=== PATIENT | female | born 1965 | race Caucasian/White ===

== ENCOUNTER 2017-05-04 10:06 | Emergency (ER) | payer BC ==
[2017-05-04 10:19] VITALS: BP 157/91
--- NOTE | 2017-05-04 10:33 | EDM.PDOC ---
ED HPI GENERAL MEDICAL PROBLEM - General Chief Complaint: Abdominal Pain Stated Complaint: ABDOMINAL PAIN X 5 DAYS Time Seen by Provider: 05/04/17 10:33 - History of Present Illness INITIAL COMMENTS - FREE TEXT/NARRATIVE: 51-year-old female presents emergency room with abdominal pain. This started about 6 days ago it is intermittent crampy in nature and seems to be triggered by food. She cannot correlate of fatty foods are worse than any other foods but any food seems to make it worse. She is tolerating some broth and liquids at this point but that's about it. She had some loose stools during this time but she has not had a BM in 2 days. She is not having any associated nausea or vomiting with this. She denies any possibility of . She's been diagnosed with a spastic colon in the past. This morning the patient tried eating some pineapple of this made things much worse however at the time of this visit she is relatively pain-free. She describes the pain as being in the upper abdomen from the right side all the way over to the left side she cannot differentiate if it's worse in the right middle or left. Patient has had some loose stools she has not noticed any blood with ease they have been somewhat mucousy. Patient is on some sort of low-carb diet at this point however is not tolerating formed foods. Abdominal Pain Score (Numeric/FACES): 2 - Related Data Allergies Allergy/AdvReac Type Severity Reaction Status Date / Time No Known Allergies Allergy Verified 05/04/17 10:18 Home Meds: Home Meds Hyoscyamine Sulfate [Levsin-Sl] 0.125 mg SL Q4H PRN #30 tab.subl 05/04/17 [Rx] Omeprazole Magnesium [Prilosec Otc] 20 mg PO DAILY PRN 05/04/17 [History] Past Medical History Gastrointestinal History: Reports: GERD Musculoskeletal History: Reports: Osteoarthritis - Past Surgical History GI Surgical History: Reports: Appendectomy Social & Family History - Tobacco Use Smoking Status *Q: Never Smoker - Caffeine Use Caffeine Use: Reports: None - Recreational Drug Use Recreational Drug Use: No ED ROS GENERAL - Review of Systems Review Of Systems: See Below Constitutional: Reports: No Symptoms HEENT: Reports: No Symptoms Respiratory: Reports: No Symptoms Cardiovascular: Reports: No Symptoms GI/Abdominal: Reports: Abdominal Pain, Diarrhea. Denies: Constipation, Nausea, Vomiting : Reports: No Symptoms, Other (She denies any possibility of ) ED EXAM, GI/ABD - Physical Exam Exam: See Below Exam Limited By: No Limitations General Appearance: Alert, No Apparent Distress Respiratory/Chest: No Respiratory Distress, Lungs Clear, Normal Breath Sounds Cardiovascular: Regular Rate, Rhythm, No Edema, No Murmur GI/Abdominal: Normal Bowel Sounds, Soft, Non-Tender, Other (Patient is obese but her exam is otherwise unremarkable this point). No: Guarding, Rebound, Rigidity Back Exam: Normal Inspection. No: CVA Tenderness (L), CVA Tenderness (R) Course - Vital Signs Last Recorded V/S: Last Vital Signs Temp 36.4 C 05/04/17 10:13 Pulse 67 05/04/17 10:13 Resp 18 05/04/17 10:13 BP 157/91 H 05/04/17 10:13 Pulse Ox 97 05/04/17 10:13 - Orders/Labs/Meds Orders: Active Orders 24 hr Category Date Time Status Abdomen 2V AP Flat Upright [CR] Stat Exams 05/04/17 10:50 Taken Labs: Laboratory Tests 05/04/17 05/04/17 05/04/17 Range/Units 11:06 11:06 11:06 WBC 5.82 (3.98-10.04) K/mm3 RBC 4.64 (3.98-5.22) M/mm3 Hgb 14.5 (11.2-15.7) gm/L Hct 41.1 (34.1-44.9) % MCV 88.6 (79.4-94.8) fl MCH 31.3 (25.6-32.2) pg MCHC 35.3 (32.2-35.5) g/dl RDW Std Deviation 39.3 (36.4-46.3) fL Plt Count 222 (182-369) K/mm3 MPV 12.1 (9.4-12.3) fl Neutrophils % (Manual) 58 (40-60) % Band Neutrophils % 1 (0-10) % Lymphocytes % (Manual) 31 (20-40) % Atypical Lymphs % 0 % Monocytes % (Manual) 5 (2-10) % Eosinophils % (Manual) 3 (0.7-5.8) % Basophils % (Manual) 2 H (0.1-1.2) Platelet Estimate Adequate RBC Morph Comment Normal Sodium 139 (136-145) mEq/L Potassium 4.0 (3.5-5.1) mEq/L Chloride 105 (98-107) mEq/L Carbon Dioxide 26 (21-32) mEq/L Anion Gap 12.0 (5-15) BUN 9 (7-18) mg/dL Creatinine 1.0 (0.55-1.02) mg/dL Est Cr Clr Drug Dosing 68.65 mL/min Estimated GFR (MDRD) 59 (>60) mL/min BUN/Creatinine Ratio 9.0 L (14-18) Glucose 109 H (74-106) mg/dL Calcium 9.2 (8.5-10.1) mg/dL Total Bilirubin 1.7 H (0.2-1.0) mg/dL AST 17 (15-37) U/L ALT 28 (14-59) U/L Alkaline Phosphatase 68 (46-116) U/L Total Protein 7.6 (6.4-8.2) g/dl Albumin 3.9 (3.4-5.0) g/dl Globulin 3.7 gm/dL Albumin/Globulin Ratio 1.1 (1-2) Lipase 133 (73-393) U/L Urine Color (Yellow) Urine Appearance (Clear) Urine pH (5.0-8.0) Ur Specific [place] (1.005-1.030) Urine Protein (Negative) Urine Glucose (UA) (Negative) Urine Ketones (Negative) Urine Occult Blood (Negative) Urine Nitrite (Negative) Urine Bilirubin (Negative) Urine Urobilinogen (0.2-1.0) Ur Leukocyte Esterase (Negative) Urine RBC (0-5) /hpf Urine WBC (0-5) /hpf Ur Epithelial Cells (0-5) /hpf Urine Bacteria (FEW) /hpf Urine Mucus (FEW) /hpf 05/04/17 Range/Units 11:40 WBC (3.98-10.04) K/mm3 RBC (3.98-5.22) M/mm3 Hgb (11.2-15.7) gm/L Hct (34.1-44.9) % MCV (79.4-94.8) fl MCH (25.6-32.2) pg MCHC (32.2-35.5) g/dl RDW Std Deviation (36.4-46.3) fL Plt Count (182-369) K/mm3 MPV (9.4-12.3) fl Neutrophils % (Manual) (40-60) % Band Neutrophils % (0-10) % Lymphocytes % (Manual) (20-40) % Atypical Lymphs % % Monocytes % (Manual) (2-10) % Eosinophils % (Manual) (0.7-5.8) % Basophils % (Manual) (0.1-1.2) Platelet Estimate RBC Morph Comment Sodium (136-145) mEq/L Potassium (3.5-5.1) mEq/L Chloride (98-107) mEq/L Carbon Dioxide (21-32) mEq/L Anion Gap (5-15) BUN (7-18) mg/dL Creatinine (0.55-1.02) mg/dL Est Cr Clr Drug Dosing mL/min Estimated GFR (MDRD) (>60) mL/min BUN/Creatinine Ratio (14-18) Glucose (74-106) mg/dL Calcium (8.5-10.1) mg/dL Total Bilirubin (0.2-1.0) mg/dL AST (15-37) U/L ALT (14-59) U/L Alkaline Phosphatase (46-116) U/L Total Protein (6.4-8.2) g/dl Albumin (3.4-5.0) g/dl Globulin gm/dL Albumin/Globulin Ratio (1-2) Lipase (73-393) U/L Urine Color Sirisha H (Yellow) Urine Appearance Clear (Clear) Urine pH 6.0 (5.0-8.0) Ur Specific [place] 1.025 (1.005-1.030) Urine Protein 1+ H (Negative) Urine Glucose (UA) Negative (Negative) Urine Ketones 1+ H (Negative) Urine Occult Blood 1+ H (Negative) Urine Nitrite Negative (Negative) Urine Bilirubin 2+ H (Negative) Urine Urobilinogen 1.0 (0.2-1.0) Ur Leukocyte Esterase Negative (Negative) Urine RBC 0-5 (0-5) /hpf Urine WBC 0-5 (0-5) /hpf Ur Epithelial Cells 0-5 (0-5) /hpf Urine Bacteria Few (FEW) /hpf Urine Mucus Many H (FEW) /hpf Meds: Medications Discontinued Medications Generic Name Dose Route Start Last Admin Trade Name Brenda PRN Reason Stop Dose Admin Hyoscyamine 0.125 mg 05/04/17 10:53 05/04/17 11:44 Hyomax-Sl SL 05/04/17 10:54 0.125 mg ONETIME ONE Administration - Re-Assessments/Exams Free Text/Narrative Re-Assessment/Exam: 05/04/17 12:24 Labs nondiagnostic her bilirubin slightly elevated at 1.7. The patient did have some return of her discomfort and she is now stating that she is getting some improvement with some Levsin. Labs are especially helpful her bilirubin slightly elevated at 1.7. KUB and upright are nondiagnostic otherwise normal. We will discharge the patient with some Levsin and get her scheduled for gallbladder ultrasound. Departure - Departure Time of Disposition: 12:27 Disposition: Home, Self-Care 01 Clinical Impression: Upper abdominal pain - Discharge Information Prescriptions: Hyoscyamine Sulfate [Levsin-Sl] 0.125 mg SL Q4H PRN #30 tab.subl PRN Reason: Abdominal Pain Forms: ED Department Discharge Additional Instructions: Return to the emergency room with any questions problems or worsening symptoms. Follow-up at the Hospital clinic later this week. [id number] You should be contacted for arrangement of the gallbladder ultrasound get this done as soon as possible. You been started on Levsin this is for the spasm and discomfort this will absorb under your tongue. Take one every 4-6 hours as needed. Continue your probiotic. Try Pepcid 20 mg twice daily or Zantac 300 mg daily. - My Orders Last 24 Hours: My Active Orders 05/04/17 10:50 Abdomen 2V AP Flat Upright [CR] Stat - Assessment/Plan Last 24 Hours: My Active Orders 05/04/17 10:50 Abdomen 2V AP Flat Upright [CR] Stat
[2017-05-04] MEDS ORDERED: Hyoscyamine 0.125 MG Tab.SL SL ONE (10:53)
--- NOTE | 2017-05-04 17:53 | CR ---
Abdomen: Supine and upright views of the abdomen were obtained. Comparison: No previous study. Calcification within the left pelvis is seen likely representing phlebolith. Bowel gas pattern appears within normal limits. Scattered air-fluid levels are seen which are felt to be within normal limits. Hemidiaphragms were not completely included on the study. No other evidence of free air is seen. No discrete soft tissue abnormality is seen. Impression: 1. Incidental findings. Diagnostic code #2
== END 2017-05-04 12:40 | disposition home or self-care (01) ==
LOC: JD.ED 10:06
DX: R10.10 Upper abdominal pain, unspecified (principal); K21.9 Gastro-esophageal reflux disease without esophagitis; M19.90 Unspecified osteoarthritis, unspecified site; Z90.49 Acquired absence of other specified parts of digestive tract
CPT/HCPCS: 36415; 74020; 80053; 81001; 83690; 85025; 99284; A9270; 99283

== ENCOUNTER 2021-07-29 02:06 | Emergency (ER) | payer BC, OTHER ==
[2021-07-29 02:21] VITALS: BP 143/96; PULSE 70
[2021-07-29] MEDS ORDERED: Orphenadrine 100 MG Tab.ER PO STA (02:31)
--- NOTE | 2021-07-29 02:37 | EDM.PDOC ---
ED HPI GENERAL MEDICAL PROBLEM - General Chief Complaint: Upper Extremity Injury/Pain Stated Complaint: SHOULDER PAIN/RT ARM NUMBNESS Time Seen by Provider: 07/29/21 02:16 Source of Information: Reports: Patient, Family ( ) History Limitations: Reports: No Limitations - History of Present Illness INITIAL COMMENTS - FREE TEXT/NARRATIVE: Mrs. Conde is a very pleasant 55-year-old woman who now presents the ED stating that she has been experiencing right shoulder pain and a tingling/numbness sensation running down the entirety of her right upper extremity since 07/24/2021. No known injury to her right upper extremity. She denies having neck pain. She states that she saw a chiropractor yesterday, 07/28/2021, which did not provide any significant relief. The patient states that she had similar symptoms about 6 years ago, after "sleeping wrong". Her symptoms resolved on their own. Here in the ED this morning, the patient's initial BP is found to be slightly elevated at 143/96, otherwise, she is hemodynamically stable, afebrile, saturating 98% on room air. She appears to be comfortable, in no acute distress. Other than her right upper extremity symptoms, the patient denies having a recent fever, chills, sore throat, ear pain, nasal or sinus congestion, cough, dyspnea, chest pain, palpitations, nausea, vomiting, constipation, diarrhea, abdominal pain, urinary symptoms, recent weight gain or weight loss, recent bloody bowel movements or black bowel movements, recent joint aches, headaches, or rashes. The patient does not have a PCP. She has received 2 COVID vaccinations. Right Shoulder Pain Score (Numeric/FACES): 10 - Related Data Allergies Allergy/AdvReac Type Severity Reaction Status Date / Time No Known Allergies Allergy Verified 07/29/21 02:21 Home Meds: Home Meds Hyoscyamine Sulfate [Levsin-Sl] 0.125 mg SL Q4H PRN #30 tab.subl 05/04/17 [Rx] Omeprazole Magnesium [Prilosec Otc] 20 mg PO DAILY PRN 05/04/17 [History] Celecoxib 200 mg PO DAILY PRN 07/29/21 [History] Orphenadrine [Norflex] 1 tab PO Q12H PRN #14 tab.er 07/29/21 [Rx] Past Medical History Gastrointestinal History: Reports: GERD Musculoskeletal History: Reports: Osteoarthritis Endocrine/Metabolic History: Reports: Obesity/BMI 30+ - Past Surgical History HEENT Surgical History: Reports: Oral Surgery (dental extractions) GI Surgical History: Reports: Appendectomy Social & Family History - Tobacco Use Tobacco Use Status *Q: Never Tobacco User - Caffeine Use Caffeine Use: Reports: Soda - Alcohol Use Alcohol Use History: Yes Alcohol Use Frequency: Socially - Recreational Drug Use Recreational Drug Use: No - Living Situation & Occupation Living situation: Reports: , with Spouse, with Family (Son) Occupation: Employed Review of Systems - Review of Systems Review Of Systems: Comprehensive ROS is negative, except as noted in HPI. ED EXAM, GENERAL - Physical Exam Exam: See Below Exam Limited By: No Limitations General Appearance: Alert, WD/WN, No Apparent Distress Eye Exam: Bilateral Eye: EOMI, Normal Inspection Ears: Normal External Exam, Hearing Grossly Normal Nose: Normal Inspection Throat/Mouth: Normal Inspection, Normal Lips, Normal Voice, No Airway Compromise Head: Atraumatic, Normocephalic Neck: Normal Inspection, Supple, Non-Tender, Full Range of Motion, Other (Having the patient turn her head fully to the right or left, tip her chin to her chest, or fully extend her neck does not induce radiculopathy symptoms. Cervical spine compression does not induce radicular symptoms.) Course - Vital Signs Last Recorded V/S: Last Vital Signs Temp 36.4 C 07/29/21 02:16 Pulse 70 07/29/21 02:16 Resp 16 07/29/21 02:16 BP 143/96 H 07/29/21 02:16 Pulse Ox 98 07/29/21 02:16 - Orders/Labs/Meds Meds: Medications Discontinued Medications Generic Name Dose Route Start Last Admin Trade Name Freq PRN Reason Stop Dose Admin Orphenadrine Citrate 100 mg 07/29/21 02:31 07/29/21 02:39 Orphenadrine 100 Mg Tab.Er PO 07/29/21 02:32 100 mg ONETIME STA Administration - Re-Assessments/Exams Free Text/Narrative Re-Assessment/Exam: 07/29/21 02:32 I think the patient has right upper extremity neuropraxia, likely due to sleeping on her right upper extremity. Her examination is not consistent with right cervical radiculopathy. The patient requested a muscle relaxant, stating that her chiropractor had recommended it. I do not believe that her symptoms have anything to do with a muscle spasm, however, I have no objection to prescribing Norflex, as it should not harm her. I would also recommend that she restart her Celebrex. I will refer her to the clinic in the event that her symptoms do not improve over the next week. The clinic can order an MRI of the patient's cervical spine if they feel it warranted. Departure - Departure Time of Disposition: 02:33 Disposition: Home, Self-Care 01 Condition: Good Clinical Impression: Neuropraxia of right upper extremity - Discharge Information *PRESCRIPTION DRUG MONITORING PROGRAM REVIEWED*: Not Applicable *COPY OF PRESCRIPTION DRUG MONITORING REPORT IN PATIENT ANUM: Not Applicable Prescriptions: Orphenadrine [Norflex] 1 tab PO Q12H PRN #14 tab.er PRN Reason: Muscle Spasm - Painful Referrals: Carla Mendez NP [Nurse Practitioner] - Forms: ED Department Discharge Additional Instructions: You were seen in the emergency room for right shoulder pain with right upper extremity tingling/numbness since Friday. Based on your history and physical examination, you are most likely suffering from right upper extremity neuropraxia. Neuropraxia typically resolves on its own within a few days, without treatment. You have been started on the muscle relaxant Norflex, per her request, and a prescription for Norflex has been sent to the [facility], [facility] [place] [address] from [facility]. Take 1 tablet of Norflex every 12 hours, starting this evening, 07/29/2021, as prescribed. Norflex works well with an NSAID. We recommend that you restart your previously prescribed Celebrex. If your symptoms persist beyond a few days, please follow-up with Carla Mendez NP, or one of the other providers in the clinic, for further evaluation that may include an MRI of your cervical spine. If any other problems, please do not hesitate to return to the ER. Sepsis Event Note (ED) - Focused Exam Vital Signs: Vital Signs Temp Pulse Resp BP Pulse Ox 07/29/21 02:16 36.4 C 70 16 143/96 H 98
== END 2021-07-29 02:45 | disposition home or self-care (01) ==
LOC: JD.ED 02:06
DX: S44.91XA Injury of unspecified nerve at shoulder and upper arm level, right arm, initial encounter (principal); K21.9 Gastro-esophageal reflux disease without esophagitis; E66.9 Obesity, unspecified; Z68.41 Body mass index [BMI] 40.0-44.9, adult; Z79.899 Other long term (current) drug therapy; Z90.49 Acquired absence of other specified parts of digestive tract; X58.XXXA Exposure to other specified factors, initial encounter
CPT/HCPCS: 99283; A9270